=== PATIENT | female | born 2000 | race Caucasian/White ===

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

== ENCOUNTER 2022-08-21 15:23 | Inpatient (IN) | payer BC ==
[2022-08-21] MEDS ORDERED: Betamethasone Acetate/Betamethasone Sod Phosphate 6 MG/1 ML MDV IM ONE (16:34)
[2022-08-21 17:09] LABS: APPEARANCE,URINE CLEAR; BILIRUBIN,URINE NEGATIVE (NEGATIVE); COLOR,URINE YELLOW; GLUCOSE,URINE NEGATIVE (NEGATIVE); KETONES,URINE NEGATIVE (NEGATIVE); LEUKOCYTE ESTERASE,URINE NEGATIVE (NEGATIVE); NITRITE,URINE NEGATIVE (NEGATIVE); OCCULT BLOOD,URINE NEGATIVE (NEGATIVE); PROTEIN,URINE NEGATIVE (NEGATIVE); UROBILINOGEN,URINE 0.2 EU/dL (<2.0)
[2022-08-21 17:21] LABS: RBC,URINE 0-1 (0-2/HPF)
[2022-08-21 17:22] LABS: BACTERIA,URINE RARE (NEGATIVE); EPITHELIAL CELLS,URINE RARE (NONE-FEW); WBC,URINE 0-1 (0-5/HPF)
[2022-08-21] MEDS: Lactated Ringers 1,000 ML IV SCH ×2 (21:15→23:53)
[2022-08-21] MEDS ORDERED: NIFEdipine 10 MG Cap PO ONE ×3 (22:19→22:24)
[2022-08-21] MEDS ORDERED: Labetalol 100 MG/20 ML MDV IVPUSH ONE (22:26)
[2022-08-21] MEDS ORDERED: Sodium Chloride 0.9% 2.5 ML Syringe FLUSH PRN (23:00)
[2022-08-21] MEDS ORDERED: Sodium Chloride 0.9% 20 ML SDV IV PRN (23:00)
[2022-08-21] MEDS ORDERED: Magnesium Sulfate/Water 4 GM in Premix Bag 1 BAG IV ONE (23:00)
[2022-08-21] MEDS ORDERED: Calcium Gluconate 10% 1 GM/10 ML SDV IV PRN (23:00)
[2022-08-21] MEDS ORDERED: Sodium Chloride 0.9% 10 ML Syringe FLUSH PRN (23:00)
[2022-08-21] MEDS ORDERED: Misoprostol 25 MCG (1/4 of 100 MCG) Tab VAG PRN ×2 (23:09)
[2022-08-21] MEDS ORDERED: Terbutaline 1 MG/ML SDV SUBCUT PRN (23:09)
[2022-08-21] MEDS ORDERED: Oxytocin/0.9 % Sodium Chloride 30 UNIT/500 ML BAG IV SCH (23:15)
[2022-08-22] MEDS: Magnesium Sulfate/Water 20 GM/500 ML BAG IV SCH ×3 (00:12→20:10)
[2022-08-22 05:53] LABS: HEMATOCRIT 34.1 % (36.0-46.0); HEMOGLOBIN 11.1 g/dL (12.0-16.0); MEAN CORPUSCULAR HGB CONC 32.6 g/dL (31.0-37.0); MEAN CORPUSCULAR VOLUME 86.1 fL (80.0-98.0); MEAN PLATELET VOLUME 9.9 fL (7.40-12.00); RED BLOOD CELL COUNT 3.96 M/uL (4.30-5.90); WHITE BLOOD CELL COUNT,WBC 25.51 K/uL (4.0-11.0)
[2022-08-22 06:23] LABS: A/G RATIO 0.7 (0.9-1.6); ALBUMIN 2.8 g/dL (3.4-5.0); BILIRUBIN TOTAL 0.2 mg/dL (0.2-1.0); CALCIUM 8.3 mg/dL (8.5-10.1); CARBON DIOXIDE,CO2 20.9 mmol/L (21.0-32.0); CREATININE 0.7 mg/dL (0.6-1.0); EST CRCL DRUG DOSING (CG) 101.39 mL/min; MAGNESIUM 4.4 mg/dL (1.8-2.4); POTASSIUM,K 3.8 mmol/L (3.5-5.1); PROTEIN TOTAL,TP 7.1 g/dL (6.4-8.2); URIC ACID 5.4 mg/dL (2.6-7.2)
[2022-08-22] MEDS: Lactated Ringers 1,000 ML IV SCH (06:23)
[2022-08-22] MEDS ORDERED: NIFEdipine 10 MG Cap PO ONE (13:00)
[2022-08-22] MEDS: Nalbuphine HCl 10 MG/ 1ML Amp IVPUSH PRN ×2 (14:55→16:31)
[2022-08-22] MEDS ORDERED: Phenylephrine HCl 0.5 MG/5 ML AMP IVPUSH PRN (18:21)
[2022-08-22] MEDS ORDERED: ePHEDrine 50 MG/ML SDV IVPUSH PRN ×2 (18:21)
[2022-08-22] MEDS ORDERED: Lidocaine 2% with EPINEPHrine 1:200,000 20 ML SDV ONE (18:29)
[2022-08-22] MEDS ORDERED: Dexmedetomidine 200 MCG/2 ML SDV ONE (18:29)
[2022-08-22] MEDS ORDERED: Ropivacaine HCl/PF 400 MG in Premix Bag 1 BAG EPIDUR SCH (18:30)
[2022-08-22] MEDS ORDERED: Acetaminophen 500 MG Tab PO PRN (23:27)
[2022-08-22] MEDS ORDERED: Docusate Sodium 100 MG Cap PO PRN (23:27)
[2022-08-22] MEDS ORDERED: oxyCODONE 5 MG Tab PO PRN (23:27)
[2022-08-22] MEDS ORDERED: Ibuprofen 400 MG Tab PO PRN (23:27)
[2022-08-22] MEDS ORDERED: Witch Hazel Medicated Pads 40/Jar TOP PRN (23:27)
[2022-08-22] MEDS ORDERED: Benzocaine/Menthol 20%-0.5% Spray 78 GM Cannister TOP PRN (23:27)
[2022-08-22] MEDS ORDERED: Lanolin 100% Cream 7 GM Tube TOP PRN (23:27)
[2022-08-22] MEDS ORDERED: Bisacodyl 10 MG Supp RECTAL PRN (23:27)
[2022-08-22 23:37] LABS: PH,UMBILICAL ARTERIAL 7.297 (7.18-7.38)
[2022-08-22 23:38] LABS: PH,UMBILICAL VENOUS 7.324 (7.25-7.45)
[2022-08-23] MEDS: Ibuprofen 800 MG Tab PO PRN ×2 (00:57→13:46)
[2022-08-23] MEDS: Magnesium Sulfate/Water 20 GM/500 ML BAG IV SCH ×2 (05:37→18:57)
[2022-08-23 05:49] LABS: HEMATOCRIT 36.4 % (36.0-46.0); HEMOGLOBIN 11.8 g/dL (12.0-16.0); MEAN CORPUSCULAR HEMOGLOBIN 27.9 pg (27.0-32.0); MEAN CORPUSCULAR HGB CONC 32.4 g/dL (31.0-37.0); MEAN CORPUSCULAR VOLUME 86.1 fL (80.0-98.0); NRBC ABSOLUTE 0 K/uL; PLATELET COUNT,PLT 390 K/uL (150-400); RED BLOOD CELL COUNT 4.23 M/uL (4.30-5.90); WHITE BLOOD CELL COUNT,WBC 33.12 K/uL (4.0-11.0)
[2022-08-23 06:26] LABS: A/G RATIO 0.6 (0.9-1.6); ALBUMIN 2.5 g/dL (3.4-5.0); BILIRUBIN TOTAL 0.3 mg/dL (0.2-1.0); CALCIUM 7.4 mg/dL (8.5-10.1); CARBON DIOXIDE,CO2 22.1 mmol/L (21.0-32.0); EST CRCL DRUG DOSING (CG) 70.98 mL/min; POTASSIUM,K 3.3 mmol/L (3.5-5.1)
[2022-08-23 06:41] LABS: BAND ABSOLUTE MAN 2.3; BAND PERCENT MAN 7 %; LYMPHOCYTES ABSOLUTE MAN 7.3 (0.6-2.4); LYMPHOCYTES PERCENT MAN 22 % (16.0-40.0); MONOCYTES PERCENT MAN 3 % (0.0-15.0); SEG NEUTROPHILS ABSOLUTE MAN 22.5 (1.4-5.7); SEG NEUTROPHILS PERCENT MAN 68 % (48.0-80.0)
[2022-08-23] MEDS: Acetaminophen 500 MG Tab PO PRN (18:55)
[2022-08-23] MEDS: NIFEdipine 30 MG Tab.ER PO SCH (21:15)
[2022-08-24 04:50] LABS: BASOPHILS ABSOLUTE AUTO 0.1 K/uL (0.0-0.1); BASOPHILS PERCENT AUTO 0.2 % (0.0-1.5); EOSINOPHILS ABSOLUTE AUTO 0.2 K/uL (0.0-0.7); HEMATOCRIT 31.9 % (36.0-46.0); HEMOGLOBIN 10.4 g/dL (12.0-16.0); LYMPHOCYTES ABSOLUTE AUTO 4.2 K/uL (0.6-2.4); MEAN CORPUSCULAR HGB CONC 32.6 g/dL (31.0-37.0); MEAN CORPUSCULAR VOLUME 85.8 fL (80.0-98.0); MONOCYTES ABSOLUTE AUTO 1.9 K/uL (0.0-0.8); NEUTROPHILS ABSOLUTE AUTO 14.7 K/uL (1.4-5.7); NEUTROPHILS PERCENT AUTO 69.8 % (48.0-80.0); NRBC ABSOLUTE 0 K/uL; PLATELET COUNT,PLT 394 K/uL (150-400); RED BLOOD CELL COUNT 3.72 M/uL (4.30-5.90); WHITE BLOOD CELL COUNT,WBC 21.11 K/uL (4.0-11.0)
[2022-08-24 05:07] LABS: CALCIUM 7.6 mg/dL (8.5-10.1); CARBON DIOXIDE,CO2 24.3 mmol/L (21.0-32.0); CREATININE 0.8 mg/dL (0.6-1.0); EST CRCL DRUG DOSING (CG) 88.72 mL/min; POTASSIUM,K 3.6 mmol/L (3.5-5.1)
[2022-08-24] MEDS: Acetaminophen 500 MG Tab PO PRN (09:14)
[2022-08-24] MEDS: NIFEdipine 30 MG Tab.ER PO SCH (16:04)
[2022-08-24] MEDS ORDERED: NIFEdipine 30 MG Tab.ER PO ONE (18:27)
[2022-08-25] MEDS ORDERED: NIFEdipine 30 MG Tab.ER PO SCH (09:00)
== END 2022-08-25 14:22 | disposition home or self-care (01) | DRG 560 ==
LOC: MW.OBCHECK 15:23 → MW.OB 15:24 → MW.OBCHECK 22:59 → MW.OB 23:00 → OBSVTOIN 08-22 23:09 → MW.OB 08-23 06:19
PROVIDERS: ADMIT Obstetrics & Gynecology; ATTEND Obstetrics & Gynecology
PROC: 10E0XZZ Delivery of Products of Conception, External Approach (ICD-10-PCS; principal; 2022-08-22)
PROC: 3E0R3BZ Introduction of Anesthetic Agent into Spinal Canal, Percutaneous Approach (ICD-10-PCS; 2022-08-22)
PROC: 00HU33Z Insertion of Infusion Device into Spinal Canal, Percutaneous Approach (ICD-10-PCS; 2022-08-22)
PROC: 10907ZC Drainage of Amniotic Fluid, Therapeutic from Products of Conception, Via Natural or Artificial Opening (ICD-10-PCS; 2022-08-22)
PROC: 3E033VJ Introduction of Other Hormone into Peripheral Vein, Percutaneous Approach (ICD-10-PCS; 2022-08-22)
PROC: 3E0P7VZ Introduction of Hormone into Female Reproductive, Via Natural or Artificial Opening (ICD-10-PCS; 2022-08-22)
DX: O14.14 Severe pre-eclampsia complicating childbirth (principal); O99.214 Obesity complicating childbirth; O42.02 Full-term premature rupture of membranes, onset of labor within 24 hours of rupture; Z37.0 Single live birth; Z3A.36 36 weeks gestation of pregnancy
CPT/HCPCS: 01967; 36410; 36415; 51702; 80048; 80053; 81001; 82803; 83735; 84112; 84550; 85025; 85027; 86850; 86900; 86901; A9270-GY; J0702; J2300; J2590; J3475; J3490; J7120

== ENCOUNTER 2022-10-08 22:49 | Emergency (ER) | payer BC ==
[2022-10-08] MEDS ORDERED: Ondansetron 4 MG/2 ML SDV IVPUSH ONE (23:21)
[2022-10-08] MEDS ORDERED: Sodium Chloride 0.9% 1,000 ML IV ONE (23:21)
[2022-10-08] MEDS ORDERED: Ketorolac 30 MG/ML SDV IVPUSH ONE (23:21)
[2022-10-08 23:29] LABS: BILIRUBIN,URINE NEGATIVE (NEGATIVE); COLOR,URINE YELLOW; GLUCOSE,URINE NEGATIVE (NEGATIVE); KETONES,URINE NEGATIVE (NEGATIVE); LEUKOCYTE ESTERASE,URINE NEGATIVE (NEGATIVE); NITRITE,URINE NEGATIVE (NEGATIVE); OCCULT BLOOD,URINE NEGATIVE (NEGATIVE); PROTEIN,URINE NEGATIVE (NEGATIVE); UROBILINOGEN,URINE 0.2 EU/dL (<2.0)
[2022-10-08 23:30] LABS: APPEARANCE,URINE HAZY
[2022-10-09 00:40] LABS: BASOPHILS ABSOLUTE AUTO 0.1 K/uL (0.0-0.1); BASOPHILS PERCENT AUTO 0.4 % (0.0-1.5); EOSINOPHILS ABSOLUTE AUTO 0.2 K/uL (0.0-0.7); EOSINOPHILS PERCENT AUTO 1.4 % (0.0-7.0); HEMATOCRIT 40.8 % (36.0-46.0); LYMPHOCYTES ABSOLUTE AUTO 2.9 K/uL (0.6-2.4); LYMPHOCYTES PERCENT AUTO 18.2 % (16.0-40.0); MEAN CORPUSCULAR HEMOGLOBIN 27.3 pg (27.0-32.0); MEAN CORPUSCULAR HGB CONC 31.9 g/dL (31.0-37.0); MEAN CORPUSCULAR VOLUME 85.5 fL (80.0-98.0); MONOCYTES ABSOLUTE AUTO 1.1 K/uL (0.0-0.8); MONOCYTES PERCENT AUTO 7.2 % (0.0-15.0); NEUTROPHILS ABSOLUTE AUTO 11.6 K/uL (1.4-5.7); NEUTROPHILS PERCENT AUTO 72.8 % (48.0-80.0); PLATELET COUNT,PLT 434 K/uL (150-400); RED BLOOD CELL COUNT 4.77 M/uL (4.30-5.90)
[2022-10-09 01:02] LABS: A/G RATIO 0.9 (0.9-1.6); ALBUMIN 3.8 g/dL (3.4-5.0); BILIRUBIN TOTAL 0.1 mg/dL (0.2-1.0); CARBON DIOXIDE,CO2 28.8 mmol/L (21.0-32.0); CREATININE 0.8 mg/dL (0.6-1.0); EST CRCL DRUG DOSING (CG) 92.79 mL/min; POTASSIUM,K 4.1 mmol/L (3.5-5.1); PROTEIN TOTAL,TP 7.8 g/dL (6.4-8.2)
[2022-10-09] MEDS ORDERED: Iopamidol 755 MG/ML 500 ML Multipack Bottle IVPUSH ONE (01:18)
[2022-10-09] MEDS ORDERED: Piperacillin/Tazobactam 4.5 GM in Sodium Chloride 0.9% 100 ML IV ONE (02:06)
== END 2022-10-09 12:05 | disposition home or self-care (01) ==
LOC: MW.ED 22:49
DX: K80.60 Calculus of gallbladder and bile duct with cholecystitis, unspecified, without obstruction (principal); Z79.899 Other long term (current) drug therapy
CPT/HCPCS: 36415; 74177; 76705; 80053; 81003; 83690; 83735; 84703; 85025; 93005; 96361; 96365; 96375; 99284; J1885; J2405; J2543; J3490; J7030; Q9967; 93010

== ENCOUNTER 2023-06-02 06:42 | Day surgery (SDC) | payer BC ==
[~2023-06-02 06:42] MED LIST: Acetaminophen 1,000 MG in Premix Bag 1 BAG IV SCH; Pregabalin 75 MG Cap PO SCH; Scopalamine 1mg/3day Transdermal Patch TRDERM PRN
[2023-06-02] MEDS ORDERED: Metoclopramide 10 MG/2 ML SDV IVPUSH PRN (07:04)
[2023-06-02] MEDS ORDERED: Naloxone 0.4 MG/ML SDV IVPUSH PRN (07:04)
[2023-06-02] MEDS ORDERED: fentaNYL 50 MCG/ML SDV IVPUSH PRN (07:04)
[2023-06-02] MEDS ORDERED: Ondansetron 4 MG/2 ML SDV IVPUSH PRN (07:04)
[2023-06-02] MEDS ORDERED: Morphine 2 MG/ML SYRINGE IVPUSH PRN (07:04)
[2023-06-02] MEDS ORDERED: HYDROmorphone 1 MG/ML Syringe IVPUSH PRN (07:04)
[2023-06-02] MEDS ORDERED: Albuterol 0.083% 2.5 MG/3 ML Neb Soln NEB PRN (07:04)
[2023-06-02] MEDS ORDERED: droPERidol 5 MG/2 ML SDV IVPUSH PRN (07:04)
[2023-06-02] MEDS ORDERED: Rocuronium Bromide 50 MG/5 ML Syringe ONE (07:13)
[2023-06-02] MEDS ORDERED: Propofol 200 MG/20 ML SDV ONE ×2 (07:13→08:48)
[2023-06-02] MEDS ORDERED: propofoL 50 ML ONE (07:13)
[2023-06-02] MEDS ORDERED: Ondansetron 4 MG/2 ML SDV ONE (07:14)
[2023-06-02] MEDS ORDERED: Ketorolac 30 MG/ML SDV ONE (07:14)
[2023-06-02] MEDS ORDERED: Dexamethasone 4 MG/ML 5 ML MDV ONE (07:14)
[2023-06-02] MEDS ORDERED: Morphine 10 MG/ML SDV ONE (07:14)
[2023-06-02] MEDS ORDERED: fentaNYL 250 MCG/5 ML SDV ONE ×2 (07:14→08:17)
[2023-06-02] MEDS ORDERED: Ropivacaine 0.5% 5 MG/ML 30 ML SDV ONE (07:15)
[2023-06-02] MEDS ORDERED: Famotidine 20 MG/2 ML SDV ONE (07:15)
[2023-06-02] MEDS ORDERED: Bupivacaine 0.25% 30 ML SDV ONE (07:16)
[2023-06-02] MEDS: Lactated Ringers 1,000 ML IV SCH (07:31)
[2023-06-02] MEDS ORDERED: dexmedeTOMIDine HCl 200 MCG/2 ML SDV ONE ×2 (07:43)
[2023-06-02] MEDS ORDERED: Lidocaine 2% 11 ML Jelly Filled Syringe ONE (07:49)
[2023-06-02] MEDS ORDERED: ceFAZolin 2 GM in Sodium Chloride 0.9% 50 ML IV ONE (13:20)
[2023-06-02] MEDS ORDERED: Sugammadex Sodium 200 MG/2 ML VIAL IV ONE (16:21)
== END 2023-06-02 11:40 | disposition home or self-care (01) ==
LOC: MW.SDS 06:42
PROVIDERS: ATTEND Surgery
DX: K80.10 Calculus of gallbladder with chronic cholecystitis without obstruction (principal)
CPT/HCPCS: 47563; 64488; 81025; A9270; J0131; J0665; J1100; J1885; J2270; J2405; J2704; J2795; J3010; J3490; J7030; J7120; 00790

== ENCOUNTER 2024-03-19 16:11 | Inpatient (IN) | payer BC ==
[2024-03-19] MEDS ORDERED: Methylergonovine 0.2 MG/1 ML Amp IM PRN (17:35)
[2024-03-19] MEDS ORDERED: Carboprost Tromethamine 250 MCG/1 mL Vial IM PRN (17:35)
[2024-03-19] MEDS ORDERED: Butorphanol 2 MG/ML SDV IVPUSH PRN (17:35)
[2024-03-19] MEDS ORDERED: Misoprostol 200 MCG Tab RECTAL PRN (17:35)
[2024-03-19] MEDS ORDERED: Water For Irrigation,Sterile 1,000 ML Container IRR PRN (17:35)
[2024-03-19] MEDS ORDERED: Sodium Chloride 0.9% 10 ML Syringe FLUSH PRN (17:35)
[2024-03-19] MEDS ORDERED: Nalbuphine 10 MG/1 ML Vial IVPUSH PRN (17:35)
[2024-03-19] MEDS ORDERED: Tranexamic Acid in NACL,ISO-OS 1,000 MG in Premix Bag 1 BAG IV PRN (17:35)
[2024-03-19] MEDS ORDERED: Sodium Chloride 0.9% 2.5 ML Syringe FLUSH PRN (17:35)
[2024-03-19] MEDS ORDERED: Sodium Chloride 0.9% 20 ML SDV IV PRN (17:35)
[2024-03-19] MEDS ORDERED: Ondansetron 4 MG/2 ML SDV IVPUSH PRN (17:35)
[2024-03-19] MEDS ORDERED: Lidocaine 1% 50 ML MDV INJECT PRN (17:35)
[2024-03-19] MEDS ORDERED: Terbutaline 1 MG/ML SDV SUBCUT PRN (17:41)
[2024-03-19] MEDS ORDERED: Oxytocin/0.9 % Sodium Chloride 30 UNIT/500 ML BAG IV SCH (17:45)
[2024-03-19] MEDS: Lactated Ringers 1,000 ML IV SCH (18:34)
[2024-03-19] MEDS: Oxytocin/0.9 % Sodium Chloride 30 UNIT/500 ML BAG IV SCH (18:41)
[2024-03-19 19:10] LABS: HEMATOCRIT 42.7 % (37.0-47.0); MEAN CORPUSCULAR HEMOGLOBIN 29.2 pg (28.0-32.0); MEAN CORPUSCULAR HGB CONC 32.8 g/dL (32.0-36.0); MEAN PLATELET VOLUME 10.1 fL (9.4-12.3); PLATELET COUNT,PLT 346 K/uL (150-400)
[2024-03-19 19:41] LABS: A/G RATIO 0.6 (0.9-1.6); ALBUMIN 2.7 g/dL (3.4-5.0); BILIRUBIN TOTAL 0.2 mg/dL (0.2-1.0); CALCIUM 9.5 mg/dL (8.5-10.1); CARBON DIOXIDE,CO2 22.3 mmol/L (21.0-32.0); CREATININE 0.6 mg/dL (0.6-1.0); POTASSIUM,K 3.5 mmol/L (3.5-5.1); PROTEIN TOTAL,TP 7.5 g/dL (6.4-8.2)
[2024-03-19] MEDS ORDERED: Bupivacaine 0.5% 10 ML SDV ONE (20:18)
[2024-03-19] MEDS ORDERED: Phenylephrine HCl In 0.9% NaCl 1 MG/10 ML Syringe ONE (20:18)
[2024-03-19] MEDS: Ropivacaine HCl/PF 200 ML ONE (20:45)
[2024-03-19] MEDS ORDERED: ePHEDrine 50 MG/ML SDV IM PRN (20:49)
[2024-03-19] MEDS ORDERED: ePHEDrine 50 MG/ML SDV IVPUSH PRN (20:49)
[2024-03-19] MEDS ORDERED: Bupivacaine 0.5% 10 ML SDV INJECT ONE (20:49)
[2024-03-19] MEDS ORDERED: Phenylephrine HCl In 0.9% NaCl 1 MG/10 ML Syringe IVPUSH PRN (20:49)
[2024-03-19] MEDS ORDERED: dexmedeTOMIDine HCl 200 MCG/2 ML SDV EPIDUR SCH (21:00)
[2024-03-19] MEDS ORDERED: Ropivacaine HCl/PF 400 MG in Premix Bag 1 BAG EPIDUR SCH (21:00)
[2024-03-19 21:51] LABS: CREATININE,URINE RAND 16.5 mg/dL
[2024-03-19 21:52] LABS: PROTEIN,URINE RANDOM < 6.0 mg/dL (<11.9)
[2024-03-19] MEDS ORDERED: Simethicone 80 MG Tab.Chew PO PRN (23:20)
[2024-03-19] MEDS ORDERED: Benzocaine/Menthol 20%-0.5% Spray 78 GM Cannister TOP PRN (23:20)
[2024-03-19] MEDS ORDERED: Docusate Sodium 100 MG Cap PO PRN (23:20)
[2024-03-19] MEDS ORDERED: Lanolin 100% Cream 7 GM Tube TOP PRN (23:20)
[2024-03-19] MEDS ORDERED: Witch Hazel Medicated Pads 40/Jar TOP PRN (23:20)
[2024-03-20 01:08] LABS: PH,UMBILICAL ARTERIAL 7.297 (7.18-7.38)
[2024-03-20 01:09] LABS: PH,UMBILICAL VENOUS 7.316 (7.25-7.45)
[2024-03-20] MEDS: Ibuprofen 800 MG Tab PO PRN (03:51)
[2024-03-20] MEDS: Prenatal Multivitamin with Calcium/Folic Acid/Iron Tab PO SCH (08:40)
[2024-03-20] MEDS: Ferrous Sulfate 325 MG Tab PO SCH (08:40)
[2024-03-20] MEDS: Acetaminophen 500 MG Tab PO PRN (08:48)
[2024-03-20 12:28] LABS: HEMATOCRIT 34.3 % (37.0-47.0); HEMOGLOBIN 11.6 g/dL (12.0-16.0); MEAN CORPUSCULAR HEMOGLOBIN 29.8 pg (28.0-32.0); MEAN CORPUSCULAR HGB CONC 33.8 g/dL (32.0-36.0); MEAN CORPUSCULAR VOLUME 88.2 fL (83.0-99.0); MEAN PLATELET VOLUME 9.6 fL (9.4-12.3); PLATELET COUNT,PLT 259 K/uL (150-400); RED BLOOD CELL COUNT 3.89 M/uL (4.10-5.30); WHITE BLOOD CELL COUNT,WBC 15.19 K/uL (3.9-11.3)
== END 2024-03-21 13:40 | disposition home or self-care (01) | DRG 560 ==
LOC: MW.OBCHECK 16:11 → MW.OB 16:14 → MW.OBCHECK 17:00 → OBSVTOIN 03-20 00:15 → MW.OB 03-20 03:57
PROVIDERS: ADMIT Obstetrics & Gynecology; ATTEND Obstetrics & Gynecology
PROC: 10E0XZZ Delivery of Products of Conception, External Approach (ICD-10-PCS; principal; 2024-03-20)
PROC: 3E0R3BZ Introduction of Anesthetic Agent into Spinal Canal, Percutaneous Approach (ICD-10-PCS; 2024-03-20)
PROC: 00HU33Z Insertion of Infusion Device into Spinal Canal, Percutaneous Approach (ICD-10-PCS; 2024-03-20)
DX: O42.02 Full-term premature rupture of membranes, onset of labor within 24 hours of rupture (principal); Z37.0 Single live birth; O40.3XX0 Polyhydramnios, third trimester, not applicable or unspecified; O69.1XX0 Labor and delivery complicated by cord around neck, with compression, not applicable or unspecified; Z3A.38 38 weeks gestation of pregnancy; Z90.49 Acquired absence of other specified parts of digestive tract
CPT/HCPCS: 01967; 36415; 51702; 59025; 59409; 59414; 80053; 82570; 82803; 83615; 84112; 84156; 85027; 86592; 86850; 86900; 86901; A9270-GY; J0665; J2371; J2590; J2795; J7120